=== PATIENT | male | born 1985 | race Caucasian/White ===

== ENCOUNTER 2017-07-02 13:02 | Emergency (ER) | payer MEDICARE, MEDICAID ==
[~2017-07-02] VITALS: Ht 177.8 cm; Wt 82.0 kg
[2017-07-02] MEDS ORDERED: SODIUM CHLORIDE 0.9% 1,000ML IVBOLUS ONE (13:30)
[2017-07-02] MEDS ORDERED: PLEASE ENTER ALLERGIES MC SCH ×2 (13:30)
[2017-07-02] MEDS ORDERED: PLEASE ENTER HEIGHT AND WEIGHT MC SCH (13:30)
[2017-07-02] MEDS ORDERED: SODIUM CHLORIDE FLUSH 10ML SYR IVF ONE (13:30)
[2017-07-02 13:38] LABS: HEMATOCRIT 47.1 % (39.2-51.8); HEMOGLOBIN 15.8 g/dL (13.7-18.0); WHITE BLOOD COUNT 7.7 x10^3/uL (3.4-10)
[2017-07-02 13:58] LABS: BLOOD UREA NITROGEN 11 mg/dL (7-18)
[2017-07-02 15:05] VITALS: BP 118/63
== END 2017-07-02 16:29 | disposition home or self-care (01) ==
LOC: ED 14:59
DX: R53.1 Weakness (principal); R42 Dizziness and giddiness; Z72.89 Other problems related to lifestyle; Z59.0 Homelessness
CPT/HCPCS: 36415; 80048; 82040; 85025; 93005; 96360; 99285; J7030